=== PATIENT | male | born 1985 | race Two or more races ===

== ENCOUNTER 2017-08-26 20:54 | Emergency (ER) | payer MEDICAID ==
[2017-08-26 21:04] VITALS: RESP 18
[2017-08-26] MEDS ORDERED: DEXAMETHASONE 4 MG TAB PO ONE (21:59)
[2017-08-26] MEDS ORDERED: CIPROFLOXACIN HCL/DEXAMETH 7.5 ML OTIC DROPS RTEAR SCH (22:00)
--- NOTE | 2017-08-26 22:00 | EDPHY ---
General Narrative: CHIEF COMPLAINT: Right ear pain x3 days. Recent flu HISTORY OF PRESENT ILLNESS: Patient complains of right ear pain x3 days. This was sudden onset. It was proceeded by several days of flu-like symptoms including cough and congestion. He has been taking [id number] medications improvement of his flu-like symptoms. The right ear pain is moderate to severe. He has had some drainage from the right ear since last night. No fever. No significant headache. No barotrauma. No repetitive swimming or scuba diving. No instrumentation of the ear canal. No other associated complaints or modifying factors. REVIEW OF SYSTEMS: Ten systems reviewed and are negative unless otherwise noted in the HPI PCP: None SPECIALISTS: None PAST MEDICAL HISTORY: Denies any complicated medical history PAST SURGICAL HISTORY: No recent surgeries SOCIAL HISTORY: Daily tobacco smoker FAMILY HISTORY: Noncontributory EXAMINATION General Appearance: Alert, no distress Head: normocephalic, atraumatic Eyes: Pupils equal and round, no conjunctival pallor or injection ENT, Mouth: Mucous membranes moist. Airway patent. Right EAC is erythematous and edematous with no debris. Right TM is visualized without perforation. Mild erythema. No bulge. No erythema of the right mastoid. Left EAC and TMs are unremarkable. Neck: Normal inspection, supple, non-tender. No meningeal signs. Respiratory: Mild rhonchi. No consolidation. No diminishment. No retractions or distress. No wheezing Cardiovascular: Tachycardic rate of 104 beats per minute. Regular rhythm. No murmur Neurological: A&O, nonfocal, normal gait Skin: Warm and dry, no rash. No petechiae or purpura. No cellulitis Extremities: Nontender, no pedal edema Psychiatric: Mood and affect normal DIFFERENTIAL DIAGNOSES: Including but not limited to otitis externa, otitis media, serous otitis media, mastoiditis, perforated TM MDM: 9:55 p.m. Acute right otitis externa without otitis media and without perforation. There is good visualization of the TM. No evidence of mastoiditis. No systemic illness. I have ordered Decadron here. I have ordered Ciprodex drops for discharge home. I provided the on-call ENT physician for him to follow up with. We discussed anti-inflammatories and pseudoephedrine. We discussed ED precautions. We discussed smoking cessation. SUPERVISION: Patient was independently examined, but I discussed the case with my secondary supervising physician - History Smoking Status: Current every day smoker - Objective Vital Signs: Initial Vital Signs Temperature (C) 99.6 F 08/26/17 21:01 Heart Rate 112 H 08/26/17 21:01 Respiratory Rate 18 08/26/17 21:01 Blood Pressure 112/74 08/26/17 21:01 O2 Sat (%) 94 08/26/17 21:01 O2 Delivery Mode Room Air Allergies/Adverse Reactions: No Known Allergies Allergy (Unverified 08/26/17 21:04) Home Medications: Medication Instructions Recorded Ciprofloxacin/Dexamethasone 4 drop OT BID #1 otic.btl 08/26/17 [Ciprodex] GABAPENTIN 08/26/17 Medications Given: Discontinued Medications Ciprofloxacin/Dexamethasone (Ciprodex) 4 drops RTEAR EDNOW ONE Stop: 08/26/17 22:31 Last Admin: 08/26/17 22:15 Dose: 1 btl Dexamethasone (Decadron) 8 mg PO EDNOW ONE Stop: 08/26/17 22:00 Last Admin: 08/26/17 22:15 Dose: 8 mg Departure - Departure Disposition: Home, Routine, Self-Care Clinical Impression: Bronchitis Otitis externa of right ear Qualifiers: Otitis externa type: unspecified type Chronicity: acute Qualified Code(s): H60.501 - Unspecified acute noninfective otitis externa, right ear Condition: Good Instructions: Otitis Externa (ED), Acute Bronchitis (ED) Additional Instructions: 1. Ear drops as discussed for 7 days 2. Recommend ibuprofen 600 mg every 8 hr as needed for pain 3. Recommend pseudoephedrine as discussed as needed 4. Recommend smoking cessation 5. Contact the on-call ENT physician as provided 6. ED precautions as discussed Referrals: Donato Liang MD [Medical Doctor] - As per Instructions Stand Alone Forms: Work Excuse Prescriptions: Ciprofloxacin/Dexamethasone [Ciprodex] 4 drop OT BID #1 otic.btl
[2017-08-26 22:19] VITALS: BP 129/88; PULSE 95; TEMP 99; O2SAT 97
[2017-08-26] MEDS ORDERED: CIPROFLOXACIN HCL/DEXAMETH 7.5 ML OTIC DROPS RTEAR ONE (22:30)
== END 2017-08-26 22:19 | disposition home or self-care (01) ==
DX: H60.501 Unspecified acute noninfective otitis externa, right ear (principal); J20.9 Acute bronchitis, unspecified; F17.200 Nicotine dependence, unspecified, uncomplicated

== ENCOUNTER 2017-08-30 07:04 | Emergency (ER) | payer MEDICAID ==
[2017-08-30 07:09] VITALS: BP 125/0; PULSE 85; RESP 16; TEMP 98.1; O2SAT 97
[2017-08-30] MEDS ORDERED: IBUPROFEN 600 MG TAB PO ONE (07:28)
--- NOTE | 2017-08-30 07:29 | EDPHY ---
HPI/HX/ROS/PE/MDM Narrative: CHIEF COMPLAINT: Ear pain, fever HISTORY OF PRESENT ILLNESS: The patient is a 32 y/o male returning with constant and worsening right ear pain now associated with fever and right lymph node swelling. He was evaluated here on , 4 days ago, and treated for otitis externa with Ciprodex. He has not yet been able to follow up with ENT. Over the weekend he's developed associated headache, fever, mild sore throat, and has been waking up in the middle of the night soaked in sweat. Since using the Ciprodex he has had no further drainage from the ear. He's also had ongoing productive cough with green mucus previously diagnosed as bronchitis. No chest pain, shortness of breath, palpitations, vomiting, diarrhea, urinary complaints, lightheadedness. REVIEW OF SYSTEMS: Aside from elements discussed in the HPI, a comprehensive 10-point review of systems was reviewed and is negative. PAST MEDICAL HISTORY: Anxiety - gabapentin SOCIAL HISTORY: Smoker, but stopped over the last few days VITAL SIGNS: Reviewed by me GENERAL: Well-developed, well-nourished, resting comfortably in no respiratory distress. HEENT: Atraumatic. Eyes: No icterus, no injection. Ears: Left TM mildly injected , not bulging; Right ear has tenderness over tragus and behind the ear, and discomfort with movement of the ear, external auditory canal is erythematous and boggy and only barely able to visualize TM. TM itself is light pink in color. Mouth: moist mucous membranes. Mild pharyngeal erythema without exudate , tonsillar enlargement, or lesions. Neck: supple, right submandibular adenopathy. LUNGS: Clear to auscultation bilaterally, no wheezes, rhonchi or rales. CARDIAC: Regular rate and rhythm, no rubs, murmurs or gallops. ABDOMEN: Soft, nontender, nondistended, bowel sounds normal. BACK: No CVA tenderness. EXTREMITIES: No trauma. No edema. Range of motion is normal throughout. NEURO: Alert and oriented, grossly nonfocal. SKIN: Warm and dry, no rash. PSYCHIATRIC: Normal mentation, no agitation. Portions of this note were transcribed by a medical coding technician. I personally performed a history, physical exam, medical decision making, and confirmed accuracy of information the transcribed note. ED Course: This is a 32 y/o male who returns to the ED with a several-day history of persistent right otitis externa now associated headache, fever, chills, and lymphadenopathy. He has tenderness of his right ear and his external auditory canal is erythematous and boggy limiting visualization of the TM indicating probable otitis media in addition to continuing externa infection. Plan for continuation of Ciprodex and addition of Augmentin, Afrin, Flonase, and ibuprofen. He understands he needs to follow up with ENT in the next 1-2 days or today if possible. Return precautions discussed. Patient agrees to discharge plan. MDM: Differential diagnosis for the patient's symptom complex was considered including but not limited to otitis media, otitis externa, foreign body, perforated tympanic membrane, bronchitis, strep throat, upper respiratory infection. - Data Points Medications Given: Discontinued Medications Amoxicillin/Clavulanate Potassium (Augmentin 875mg) 875 mg PO EDNOW ONE PRN Reason: Protocol Stop: 08/30/17 07:31 Last Admin: 08/30/17 07:43 Dose: 875 mg Ibuprofen (Motrin) 600 mg PO EDNOW ONE Stop: 08/30/17 07:29 Last Admin: 08/30/17 07:42 Dose: 600 mg Oxymetazoline HCl (Afrin Nasal [place]) 2 sprays EACHNARE EDNOW ONE Stop: 08/30/17 07:31 Last Admin: 08/30/17 07:42 Dose: 2 spray General Time Seen by Provider: 08/30/17 07:14 Initial Vital Signs: Initial Vital Signs Temperature (C) 36.7 C 08/30/17 07:05 Heart Rate 85 08/30/17 07:05 Respiratory Rate 16 08/30/17 07:05 Blood Pressure 125/0 H 08/30/17 07:05 O2 Sat (%) 97 08/30/17 07:05 O2 Delivery Mode Room Air Allergies/Adverse Reactions: No Known Allergies Allergy (Verified 08/30/17 07:06) Home Medications: Medication Instructions Recorded Ciprofloxacin/Dexamethasone 4 drop OT BID #1 otic.btl 08/26/17 [Ciprodex] GABAPENTIN 08/26/17 Amoxicillin/Clavulanate Pot 875 mg PO BID #14 tab 08/30/17 [Augmentin 875 MG TAB (*)] Departure - Departure Disposition: Home, Routine, Self-Care Clinical Impression: probable otitis media, Bronchitis Otitis externa Qualifiers: Otitis externa type: diffuse Chronicity: acute Laterality: right Qualified Code (s): H60.311 - Diffuse otitis externa, right ear Condition: Good Instructions: Otitis Externa (ED), Serous Otitis Media (ED) Additional Instructions: 1. Take Augmentin as prescribed. Be sure to complete the entire prescription. 2. Continue using the Ciprodex ear drops as directed. 3. Use Afrin nasal spray. Do not use for longer than 3 days. 4. Take 600mg ibuprofen every 6-8 hours as needed for pain, inflammation, or fever over the next few days. 5. Use Flonase nasal spray, available over the counter, for the next several days. 6. Follow up with an ENT within the next 1-2 days. I recommend calling this morning to schedule an appointment. 7. Return to the ED for any worsening of condition. Referrals: Jae Muir MD [Medical Doctor] - As per Instructions Stand Alone Forms: Work Excuse Prescriptions: Amoxicillin/Clavulanate Pot [Augmentin 875 MG TAB (*)] 875 mg PO BID #14 tab Report Scribed for: Julianne Banerjee Report Scribed by: Yeimy Chu Date of Report: 08/30/17 Time of Report: 07:29
[2017-08-30] MEDS ORDERED: OXYMETAZOLINE 30 ML NASAL SPRAY EACHNARE ONE (07:30)
[2017-08-30] MEDS ORDERED: AMOXICILLIN/CLAVULANATE POT 875/125 MG TAB PO ONE (07:30)
== END 2017-08-30 07:52 | disposition home or self-care (01) ==
DX: J20.9 Acute bronchitis, unspecified (principal); H60.311 Diffuse otitis externa, right ear; F17.200 Nicotine dependence, unspecified, uncomplicated